=== PATIENT | female | born 1955 | race Asian ===

== ENCOUNTER 2020-02-28 15:37 | Emergency (ER) | payer OTHER ==
[~2020-02-28] VITALS: Ht 172.7 cm; Wt 61.7 kg
[2020-02-28] MEDS ORDERED: IV NS 0.9% 500 ML BAG IV ONE ×2 (16:00→16:30)
[2020-02-28] MEDS ORDERED: ONDANSETRON HCL/PF 4 MG/2 ML VIAL IVP ONE (16:00)
[2020-02-28] MEDS ORDERED: ONDANSETRON HCL/PF 4 MG/2 ML VIAL ONE (16:05)
--- NOTE | 2020-02-28 16:18 | NUR ---
BIBS FROM HOME TO ER BED 7. AAOX4. NOT IN RESP DISTRESS, BREATHING EVEN AND UNLABORED. AMBULATORY. CAME IN FOR BURPING FOR THE PAST 3 WEEKS. PT ALSO CAME IN FOR DIFFICULTY BREATHING UPON WAKING UP, NOT IN DISTRESS UPON ASSESSMENT. PT ALSO REPORTS THAT IT FEELS BURNING ON HER CHEST AND MOUTH. MD WAS AT BEDSIDE FOR EVAL.
[2020-02-28 16:20] LABS: BASOPHILS % (AUTO) 0.3 % (0.0-2.0); EOSINOPHILS % (AUTO) 0.5 % (0.0-6.0); HEMATOCRIT 35 % (33-45); HEMOGLOBIN 11.8 g/dL (11.5-14.8); LYMPHOCYTES # (AUTO) 1.4 /CMM (0.8-4.8); LYMPHOCYTES % (AUTO) 20.5 % (20.0-44.0); MEAN CORPUSCULAR HGB CONC 34 g/dl (31.0-36.0); MEAN CORPUSCULAR VOLUME 81 fL (82-100); MONOCYTES # (AUTO) 0.5 /CMM (0.1-1.30); MONOCYTES % (AUTO) 7.1 % (2.0-12.0); NEUTROPHILS # (AUTO) 4.8 /CMM (1.8-8.9); NEUTROPHILS % (AUTO) 71.6 % (43.0-81.0); PLATELET COUNT (AUTO) 315 /CMM (150-450); RED BLOOD CELL COUNT(AUTO) 4.35 MIL/uL (4.0-5.2); WHITE BLOOD COUNT (AUTO) 6.8 K/uL (4.3-11.0)
[2020-02-28 16:27] LABS: CALCIUM, SERUM 8.7 mg/dL (8.5-10.1); CREATININE 1.3 mg/dL (0.6-1.3)
[2020-02-28] MEDS ORDERED: PANTOPRAZOLE 40 MG VIAL IV ONE (16:30)
[2020-02-28] MEDS ORDERED: MAG HYDROX/AL HYDROX/SIMETH 30 ML UDC PO ONE (16:30)
[2020-02-28] MEDS ORDERED: LIDOCAINE VISCOUS 2% UD 15 ML UDC MM ONE (16:30)
[2020-02-28 16:33] LABS: BILIRUBIN,TOTAL 0.4 mg/dL (0.2-1.0)
[2020-02-28 16:34] LABS: ALBUMIN 3.7 g/dL (3.4-5.0); BILIRUBIN,DIRECT 0.1 mg/dL (0.0-0.2); TOTAL PROTEIN, SERUM 7.6 g/dL (6.4-8.2)
[2020-02-28] MEDS ORDERED: LIDOCAINE VISCOUS 2% UD 15 ML UDC ONE (16:38)
[2020-02-28] MEDS ORDERED: PANTOPRAZOLE 40 MG VIAL ONE (16:38)
[2020-02-28] MEDS ORDERED: MAG HYDROX/AL HYDROX/SIMETH 30 ML UDC ONE (16:39)
[2020-02-28 17:34] LABS: APPEARANCE,URINE Slightly Cloudy (CLEAR); BILIRUBIN,URINE Negative (NEGATIVE); BLOOD, URINE Negative Ery/uL (NEGATIVE); COLOR,URINE Yellow (YELLOW); KETONES,URINE 40 (NEGATIVE); LEUKOCYTE ESTERASE ,URINE Negative (NEGATIVE); NITRITE, URINE Negative (NEGATIVE); PH,URINE >9.0 (5.0-8.0); PROTEIN,URINE Negative (NEGATIVE); UGLUCOSE Negative (NEGATIVE); UROBILINOGEN,URINE 0.2 EU/dL (0.2)
[2020-02-28 17:40] LABS: BACTERIA,URINE None seen /HPF (None Seen); RBC,URINE 0-2 /HPF (0-2); SQUAMOUS EPITHELIAL CELL,UR Moderate /HPF (None Seen); WBC,URINE 0-2 /HPF (0-3)
--- NOTE | 2020-02-28 17:56 | NUR ---
US AT BEDSIDE.
--- NOTE | 2020-02-28 18:31 | NUR ---
Patient discharged to home in stable condition. Written and verbal after care instructions given. Patient verbalizes understanding of instruction.IV removed. Catheter intact and site benign. Pressure and 4x4 applied to site. No bleeding noted. Pt ambulatory with a steady gait
[2020-02-28 18:32] VITALS: BP 136/89
== END 2020-02-28 18:32 | disposition home or self-care (01) ==
LOC: ER 15:41
DX: K80.50 Calculus of bile duct without cholangitis or cholecystitis without obstruction (principal); K85.90 Acute pancreatitis without necrosis or infection, unspecified; I10 Essential (primary) hypertension; E11.9 Type 2 diabetes mellitus without complications; E78.00 Pure hypercholesterolemia, unspecified
CPT/HCPCS: 36415; 71045; 76705; 80048; 80076; 81001; 83690; 85025; 93005; 96374; 96375; 99285; C9113; J2405; J7040 ×2; 81000-TC

== ENCOUNTER 2020-03-08 10:56 | Inpatient (IN) | payer OTHER ==
[~2020-03-08] VITALS: Ht 167.6 cm; Wt 62.3 kg
--- NOTE | 2020-03-08 11:10 | NUR ---
Abdominal Pain/SOB "was here last week dx with pancreatitis/pain worse at night have problems breathing" Patient a/ox4, breathing even and unlabored, no sob noted, needs attended, kept comfortable. Attached to the director mortgage.
[2020-03-08] MEDS ORDERED: ONDANSETRON HCL/PF 4 MG/2 ML VIAL ONE (11:20)
--- NOTE | 2020-03-08 11:25 | NUR ---
PATIENT TAKEN TO CT.
[2020-03-08] MEDS ORDERED: ONDANSETRON HCL/PF 4 MG/2 ML VIAL IVP ONE (11:30)
[2020-03-08 11:33] LABS: BASOPHILS % (AUTO) 0.7 % (0.0-2.0); EOSINOPHILS % (AUTO) 0.3 % (0.0-6.0); HEMATOCRIT 36 % (33-45); HEMOGLOBIN 12.3 g/dL (11.5-14.8); LYMPHOCYTES # (AUTO) 0.8 /CMM (0.8-4.8); LYMPHOCYTES % (AUTO) 12.6 % (20.0-44.0); MEAN CORPUSCULAR HGB CONC 35 g/dl (31.0-36.0); MEAN CORPUSCULAR VOLUME 80 fL (82-100); MONOCYTES # (AUTO) 0.5 /CMM (0.1-1.30); MONOCYTES % (AUTO) 7.5 % (2.0-12.0); NEUTROPHILS # (AUTO) 5.1 /CMM (1.8-8.9); NEUTROPHILS % (AUTO) 78.9 % (43.0-81.0); PLATELET COUNT (AUTO) 355 /CMM (150-450); RED BLOOD CELL COUNT(AUTO) 4.48 MIL/uL (4.0-5.2); WHITE BLOOD COUNT (AUTO) 6.5 K/uL (4.3-11.0)
[2020-03-08 11:45] LABS: CALCIUM, SERUM 8.8 mg/dL (8.5-10.1); CARBON DIOXIDE 26 mmol/L (21-32); CHLORIDE 86 mmol/L (98-107); CREATININE 1.3 mg/dL (0.6-1.3); GLUCOSE 185 mg/dL (74-106); POTASSIUM 3.9 mmol/L (3.5-5.1); SODIUM SERUM 121 mmol/L (136-145); UREA NITROGEN, BLOOD 12 mg/dL (7-18)
[2020-03-08 11:48] LABS: ALANINE AMINOTRANSFERASE 17 U/L (12-78); ALBUMIN 3.9 g/dL (3.4-5.0); ALKALINE PHOSPHATASE 81 U/L (46-116); ASPARTATE AMINOTRANSFERASE 15 U/L (15-37); BILIRUBIN,DIRECT 0.1 mg/dL (0.0-0.2); BILIRUBIN,TOTAL 0.6 mg/dL (0.2-1.0); LIPASE 766 U/L (73-393); TOTAL PROTEIN, SERUM 7.9 g/dL (6.4-8.2)
--- NOTE | 2020-03-08 11:55 | NUR ---
PATIENT CAME BACK FROM CT.
[2020-03-08] MEDS ORDERED: DOCU-270 PO (11:57)
[2020-03-08] MEDS ORDERED: ASPI-1152 PO (11:57)
[2020-03-08] MEDS ORDERED: DOXE25CA3 PO (11:57)
[2020-03-08] MEDS ORDERED: METF-440 PO (11:57)
[2020-03-08] MEDS ORDERED: BENA20TA9 PO (11:57)
[2020-03-08] MEDS ORDERED: AMLO5TAB9 PO (11:57)
[2020-03-08] MEDS ORDERED: ONDA-97 PO (11:57)
[2020-03-08] MEDS ORDERED: LORA10TA7 PO (11:57)
[2020-03-08] MEDS ORDERED: FLUT16SP16 NS (11:57)
[2020-03-08] MEDS ORDERED: PANT40TA4 PO (11:57)
[2020-03-08] MEDS ORDERED: ZOLP10TA2 PO (11:57)
[2020-03-08] MEDS ORDERED: GLIM2TAB31 PO (11:57)
--- NOTE | 2020-03-08 12:10 | NUR ---
PATIENT GIVEN A URINE CUP FOR SAMPLE, BUT PATIENT DROP THE SPECIMEN ON THE TOILET. WILL TRY AGAIN LATER.
--- NOTE | 2020-03-08 12:21 | NUR ---
PATIENT RESTING AT THIS TIME, VSS.
--- NOTE | 2020-03-08 13:29 | NUR ---
CM CALLED SAYING THAT THEY GIVE AUTHORIZATION FOR M/S. AUTH NUMBER [id number].
--- NOTE | 2020-03-08 13:34 | NUR ---
PAGED DR. DUNCAN.
[2020-03-08 13:36] LABS: APPEARANCE,URINE Clear (CLEAR); BILIRUBIN,URINE Negative (NEGATIVE); BLOOD, URINE NEGATIVE Ery/uL (NEGATIVE); COLOR,URINE Yellow (YELLOW); KETONES,URINE Negative (NEGATIVE); LEUKOCYTE ESTERASE ,URINE Negative (NEGATIVE); NITRITE, URINE Negative (NEGATIVE); PROTEIN,URINE Negative (NEGATIVE); UGLUCOSE Negative (NEGATIVE); UROBILINOGEN,URINE 0.2 EU/dL (0.2)
[2020-03-08] MEDS ORDERED: IV NS 0.9% 100 ML IV ONE (14:00)
--- NOTE | 2020-03-08 14:23 | NUR ---
REPORT GIVEN TO LILIA FAY FOR ALISON.
--- NOTE | 2020-03-08 14:53 | NUR ---
PATIENT TRANSFERRED TO ROOM 310 IN STABLE CONDITION. NEEDS ATTENDED. KEPT COMFORTABLE.
[2020-03-08] MEDS ORDERED: Z GUARD REMEDY 2 OZ OINT TP PRN (15:00)
[2020-03-08] MEDS ORDERED: ZOLPIDEM TARTRATE 5 MG TABLET PO PRN (15:00)
[2020-03-08] MEDS ORDERED: HYDROCODONE/APAP 5/325MG 1 EACH TABLET PO PRN (15:00)
[2020-03-08] MEDS ORDERED: ONDANSETRON HCL/PF 4 MG/2 ML VIAL IVP PRN (15:00)
[2020-03-08] MEDS ORDERED: MAG HYDROX/AL HYDROX/SIMETH 30 ML UDC PO PRN (15:00)
[2020-03-08] MEDS ORDERED: ACETAMINOPHEN 325 MG TABLET PO PRN (15:00)
[2020-03-08] MEDS ORDERED: MAGNESIUM HYDROXIDE 30 ML UDC PO PRN (15:00)
--- NOTE | 2020-03-08 15:00 | NUR ---
MS/RN New admission New admission from emergency room with pancreatitis. Fully admitted, skin intact, heplock noted to right AC, no signs of infiltration seen. Educated on how to use television remote and how to call for nurse. Awaiting admitting orders and consult with Dr Mcelroy. Will continue to monitor and ensure safety.
[2020-03-08 15:21] VITALS: BP 145/78
[2020-03-08] MEDS ORDERED: DEXTROSE 50%-WATER 50 ML DISP.SYRIN IV PRN (15:30)
--- NOTE | 2020-03-08 15:33 | NUR ---
MS/RN S/B Dr Soliman Seen by Dr Soliman - admitting orders given. Home medications to be held at this time as patient is NPO.
[2020-03-08] MEDS: IV 1/2NS 1000 ML 1,000 ML IV PRN (15:42)
[2020-03-08] MEDS: BLOOD SUGAR DIAGNOSTIC 1 EACH STRIP IN SCH ×2 (17:11→21:23)
--- NOTE | 2020-03-08 17:51 | NUR ---
MS/RN Blood sugar Blood sugar at 5p - 116, no coverage needed.
--- NOTE | 2020-03-08 17:53 | NUR ---
MS/firer bisque kiln reconciliation Dr Soliman made aware that medication reconciliation still needs to be completed.
--- NOTE | 2020-03-08 18:54 | NUR ---
MS/RN End note No new needs or concerns at this time, all questions and concerns addressed. Will endorse to shift commander.
--- NOTE | 2020-03-08 19:30 | NUR ---
MS RN OPENING NOTES PATIENT AWAKE IN BED. A/OX4, ABLE TO VERBALIZE NEEDS. ON RA. NO S/S OF ACUTE RESPIRATORY DISTRESS OR C/O PAIN AT THIS TIME. CURRENTLY NPO. IV PRESENT ON RIGHT AC, SIZE 20, INTACT & PATENT WITH 1/2 NS RUNNING AT 125 ML/HR. SAFETY MEASURES IN PLACE AND PATIENT'S NEEDS MET. BED LOCKED, SIDE RAILS X2, CALL LIGHT WITHIN REACH. WILL CONTINUE TO MONITOR.
[2020-03-08 20:00] VITALS: BP 154/75
[2020-03-08 21:40] VITALS: BP 154/75
[2020-03-09] MEDS: IV 1/2NS 1000 ML 1,000 ML IV PRN ×2 (01:08→14:04)
[2020-03-09 06:16] LABS: BASOPHILS % (AUTO) 0.7 % (0.0-2.0); EOSINOPHILS % (AUTO) 0.5 % (0.0-6.0); HEMATOCRIT 36 % (33-45); HEMOGLOBIN 12.1 g/dL (11.5-14.8); LYMPHOCYTES % (AUTO) 16.3 % (20.0-44.0); MEAN CORPUSCULAR HGB CONC 34 g/dl (31.0-36.0); MEAN CORPUSCULAR VOLUME 81 fL (82-100); MONOCYTES # (AUTO) 0.5 /CMM (0.1-1.30); MONOCYTES % (AUTO) 8.8 % (2.0-12.0); NEUTROPHILS # (AUTO) 4.4 /CMM (1.8-8.9); NEUTROPHILS % (AUTO) 73.7 % (43.0-81.0); PLATELET COUNT (AUTO) 348 /CMM (150-450); RED BLOOD CELL COUNT(AUTO) 4.46 MIL/uL (4.0-5.2)
[2020-03-09 06:35] LABS: ALBUMIN 3.7 g/dL (3.4-5.0); BILIRUBIN,TOTAL 0.5 mg/dL (0.2-1.0); CALCIUM, SERUM 8.5 mg/dL (8.5-10.1); CREATININE 1.1 mg/dL (0.6-1.3); PHOSPHORUS 3.7 mg/dL (2.5-4.9); POTASSIUM 4.2 mmol/L (3.5-5.1); TOTAL PROTEIN, SERUM 7.7 g/dL (6.4-8.2)
[2020-03-09] MEDS: BLOOD SUGAR DIAGNOSTIC 1 EACH STRIP IN SCH ×4 (06:43→22:29)
--- NOTE | 2020-03-09 07:40 | NUR ---
MS RN CLOSING NOTES PATIENT AWAKE IN BED. A/OX4. ON RA. NO S/S OF ACUTE RESPIRATORY DISTRESS OR C/O PAIN AT THIS TIME. REMAINS NPO. IV PRESENT ON RIGHT AC, SIZE 20, INTACT & PATENT WITH 1/2 NS RUNNING AT 125 ML/HR. SAFETY MEASURES IN PLACE AND PATIENT'S NEEDS MET. BED LOCKED, SIDE RAILS X2, CALL LIGHT WITHIN REACH. WILL ENDORSE TO DAY SHIFT NURSE PLAN OF CARE.
--- NOTE | 2020-03-09 07:45 | NUR ---
MS/RN Orders Call received from Dr Mcelroy - patient to be scheduled for MRCP later today. Consent form signed and placed in chart, to remain NPO.
[2020-03-09 08:00] VITALS: BP 148/81
[2020-03-09 08:44] VITALS: BP 148/81
--- NOTE | 2020-03-09 11:42 | NUR ---
MS/RN MRCP Patient off floor at this time for MRCP.
--- NOTE | 2020-03-09 13:08 | NUR ---
MS/RN Blood sugar Blood sugar at noon 106, no coverage needed.
--- NOTE | 2020-03-09 15:42 | NUR ---
MS/RN Urine Urine spacejosias collected and sent to lab.
[2020-03-09 16:00] VITALS: BP 145/74
[2020-03-09 16:19] VITALS: BP 145/71
[2020-03-09 17:21] LABS: APPEARANCE,URINE SL CLOUDY (CLEAR); BILIRUBIN,URINE NEGATIVE (NEGATIVE); BLOOD, URINE TRACE-INTA Ery/uL (NEGATIVE); COLOR,URINE YELLOW (YELLOW); KETONES,URINE 40 (NEGATIVE); LEUKOCYTE ESTERASE ,URINE TRACE (NEGATIVE); NITRITE, URINE NEGATIVE (NEGATIVE); PROTEIN,URINE NEGATIVE (NEGATIVE); UGLUCOSE NEGATIVE (NEGATIVE); UROBILINOGEN,URINE 0.2 EU/dL (0.2)
[2020-03-09 17:42] LABS: BACTERIA,URINE Few /HPF (None Seen); RBC,URINE 0-2 /HPF (0-2); SQUAMOUS EPITHELIAL CELL,UR Few /HPF (None Seen)
[2020-03-09 17:43] LABS: EOSINOPHIL,URINE None Seen
[2020-03-09 17:51] LABS: CREATININE, URINE 52.6 MG/DL (30.0-125.0); URINE TOTAL PROTEIN 30.8 mg/dL (0-11.9)
--- NOTE | 2020-03-09 18:42 | NUR ---
MS/RN End note Patient remains in stable condition, no new needs at th is time. Continues to deny pain, remains NPO until reviewed by GI. Will endorse to fiberglass autobody repairer.
[2020-03-09 20:00] VITALS: BP 150/84
--- NOTE | 2020-03-09 20:00 | NUR ---
MS/RN OPENING NOTES RECEIVED PATIENT IN BED, ABLE TO RESPOND AND PARTICIPATE WITH CARE. CALM AND COOPERATIVE, ON NPO STATUS DUE TO DX AND PATIENT WITH IV FLUIDS OF 1/2NS AT 125 ML/HR. RESPIRATIONS EVEN AND UNLABORED, SKIN WARM TO TOUCH. ABLE TO MAKE NEEDS KNOWN WITH [employer] FAMILY MEMBER DAUGHTER WHO CALLS. TO FIND OUT HER CARE,AND TO HAVE MD BE INFORMED THAT WOULD LIKE TO CALL HER MALIK AM, TO FOLLOW UP IN AM. BED LOCKED CALL LIGHTS WITHIN REACH. WILL MONITOR.
--- NOTE | 2020-03-09 22:00 | NUR ---
BLOOD SUGAR CHECK AT 83 WITH NO COVERAGE. ON NPO STATUS WITH IV 1/2 NS AT 125 ML/HR.MONITORING FOR ANY CHANGES.
[2020-03-10] MEDS: IV 1/2NS 1000 ML 1,000 ML IV PRN ×2 (01:16→17:10)
[2020-03-10] MEDS: BLOOD SUGAR DIAGNOSTIC 1 EACH STRIP IN SCH ×5 (05:42→22:21)
--- NOTE | 2020-03-10 05:46 | NUR ---
BLOOD SUGAR 79 WITH NO COVERAGE .
[2020-03-10 06:27] LABS: BASOPHILS % (AUTO) 0.5 % (0.0-2.0); EOSINOPHILS % (AUTO) 0.8 % (0.0-6.0); HEMATOCRIT 37 % (33-45); HEMOGLOBIN 12.4 g/dL (11.5-14.8); LYMPHOCYTES % (AUTO) 14.5 % (20.0-44.0); MEAN CORPUSCULAR HGB CONC 33 g/dl (31.0-36.0); MEAN CORPUSCULAR VOLUME 82 fL (82-100); MONOCYTES # (AUTO) 0.5 /CMM (0.1-1.30); MONOCYTES % (AUTO) 7.3 % (2.0-12.0); NEUTROPHILS # (AUTO) 5.3 /CMM (1.8-8.9); NEUTROPHILS % (AUTO) 76.9 % (43.0-81.0); PLATELET COUNT (AUTO) 337 /CMM (150-450); RED BLOOD CELL COUNT(AUTO) 4.57 MIL/uL (4.0-5.2); WHITE BLOOD COUNT (AUTO) 6.9 K/uL (4.3-11.0)
--- NOTE | 2020-03-10 06:35 | NUR ---
310-2 MS/RN NOTES PATIENT ABLE TO SLEEP DURING THE NIGHT, ATTENDED TO ALL NEEDS, KEPT COMFORTABLE. IV HYDRATION OF IV NS AT 1/2 NS AT 125 ML/HR. BED LOCKED, CALL LIGHTS WITHIN REACH. MONITORED FOR ANY CHANGES. WILL ENDORSE TO AM RN FOR ALISON.
[2020-03-10 06:36] LABS: CALCIUM, SERUM 8.5 mg/dL (8.5-10.1); CREATININE 1.1 mg/dL (0.6-1.3); MAGNESIUM 1.8 mg/dL (1.8-2.4); PHOSPHORUS 3.3 mg/dL (2.5-4.9)
[2020-03-10 06:49] LABS: THYROID STIMULATING HORMONE 1.28 uIU/mL (0.358-3.74); URIC ACID 9.3 mg/dL (2.6-7.2)
--- NOTE | 2020-03-10 07:10 | NUR ---
MS/RN - Assessment Patient is A/O X 4, stable on room air, still c/o burning epigastric, currently NPO, on IVF 1/2 NS at 125 ml/hr infusing well on the RAC with no signs of infiltration. Dr. Lebron at bedside with order to start patient on clear liquids. Labs reviewed, no critical results seen. Fall precautions maintained. Will continue with current medical management.
--- NOTE | 2020-03-10 07:45 | NUR ---
MS/RN - Notes Dr. Lebron spoke with pt's daughter Makayla ([phone]) and updated on patient's condition.
[2020-03-10 08:00] VITALS: BP 141/81
[2020-03-10] MEDS: INSULIN REGULAR, HUMAN 100 UNIT/ML 3 ML VIAL SQ PRN ×2 (12:12→22:15)
[2020-03-10 16:00] VITALS: BP 119/71
--- NOTE | 2020-03-10 18:21 | NUR ---
MS/RN - End of shift summary Patient remain afebrile, states feeling better, able to tolerate clear liquid diet, denies abdominal pain, no c/o n/v. Continue IVF for volume resuscitation, good urine output noted. Plan of care discussed with patient and daughter Makayla and in agreement.
[2020-03-10 20:00] VITALS: BP 145/85
--- NOTE | 2020-03-10 20:00 | NUR ---
MS RN NOTES RECEIVED ON BED A/O X4,BREATHING REGULAR,NOT IN ANY FORM OF DISTRESS.IVF 1/2 NS AT 125ML/HR RATE IN PROGRESS ON RAC VIA IV PUMP,SITE PATENT.AMBULATE WITH ASSIST,CALL LIGHT IN REACH,NEEDS ANTICIPATED.
--- NOTE | 2020-03-10 22:50 | NUR ---
MS RN NOTES ACCU-CHECK BLOOD SUGAR CHECK 94,NO INSULIN COVERAGE.
[2020-03-11 03:06] LABS: PTH, INTACT 41 pg/mL (15-65)
[2020-03-11] MEDS: IV 1/2NS 1000 ML 1,000 ML IV PRN (03:49)
[2020-03-11] MEDS: BLOOD SUGAR DIAGNOSTIC 1 EACH STRIP IN SCH ×4 (05:18→22:19)
--- NOTE | 2020-03-11 05:30 | NUR ---
MS RN NOTES ACCU-CHECK BLOOD SUGAR CHECK 131,WANTS HUMULIN COVERAGE 2 UNITS BEFORE BREAKFAST.
--- NOTE | 2020-03-11 06:41 | NUR ---
MS RN NOTES FAIRLY RESTED AT NIGHT.IVF INFUSING WELL VIA IV PUMP.AMBULATE WITH ASSIST TO THE RESTROOM.DENIES PAIN.TOLERATED CLEAR LIQUID DIET.NO N/V NOTED.IN NO ACUTE DISTRESS.
[2020-03-11 07:03] LABS: BASOPHILS # (AUTO) 0.1 /CMM (0.0-0.2); BASOPHILS % (AUTO) 0.7 % (0.0-2.0); EOSINOPHILS % (AUTO) 0.9 % (0.0-6.0); HEMATOCRIT 38 % (33-45); HEMOGLOBIN 12.7 g/dL (11.5-14.8); LYMPHOCYTES # (AUTO) 1.4 /CMM (0.8-4.8); LYMPHOCYTES % (AUTO) 20.1 % (20.0-44.0); MEAN CORPUSCULAR HGB CONC 34 g/dl (31.0-36.0); MEAN CORPUSCULAR VOLUME 81 fL (82-100); MONOCYTES # (AUTO) 0.4 /CMM (0.1-1.30); MONOCYTES % (AUTO) 6.1 % (2.0-12.0); NEUTROPHILS # (AUTO) 5.1 /CMM (1.8-8.9); NEUTROPHILS % (AUTO) 72.2 % (43.0-81.0); PLATELET COUNT (AUTO) 387 /CMM (150-450); RED BLOOD CELL COUNT(AUTO) 4.65 MIL/uL (4.0-5.2); WHITE BLOOD COUNT (AUTO) 7.1 K/uL (4.3-11.0)
[2020-03-11 07:14] LABS: CALCIUM, SERUM 8.5 mg/dL (8.5-10.1); POTASSIUM 3.4 mmol/L (3.5-5.1)
--- NOTE | 2020-03-11 07:30 | NUR ---
MS/RN - Assessment Patient is A/O X 4, no complaints overnight, denies epigastric pain, stable on room air, on IVF 1/2 NS at 125 ml/hr infusing well on the RAC with no signs of infiltration. Dr. Lebron at bedside with order to advance diet to CCHO/2gm Na and d/c IVF. Labs reviewed, noted with low potassium/sodium. Relayed to Dr. Lebron. Fall precautions maintained. Will continue with current medical management. Addendum: 03/11/20 at 0750 by RAYMOND WHITLEY RN Correction to above order: D/c IVF if able to tolerate current diet.
[2020-03-11 08:00] VITALS: BP 130/70
[2020-03-11 08:07] LABS: *SPE ALBUMIN 3.4 g/dL (2.9-4.4); *SPE ALPHA-1-GLOBULIN 0.3 g/dL (0.0-0.4); *SPE BETA GLOBULIN 1.2 g/dL (0.7-1.3); *SPE GLOBULIN, TOTAL 3.5 g/dL (2.2-3.9); *SPE M-SPIKE Not Observed g/dL (Not Observed); *SPEGAMMA GLOBULIN 1.1 g/dL (0.4-1.8)
[2020-03-11] MEDS ORDERED: POTASSIUM CHLORIDE 20 MEQ TAB.PRT.SR PO SCH (12:00)
[2020-03-11 16:00] VITALS: BP 135/79
[2020-03-11] MEDS: METFORMIN 500 MG TABLET PO SCH (17:07)
[2020-03-11] MEDS: INSULIN REGULAR, HUMAN 100 UNIT/ML 3 ML VIAL SQ PRN (17:12)
--- NOTE | 2020-03-11 17:15 | NUR ---
MS/RN IV SITE CHANGE Removed Right AC IV since it was leaking. New IV site was done on the Left wrist, 22 gauge, saline locked.
--- NOTE | 2020-03-11 17:37 | NUR ---
MS/RN END OF SHIFT SUMMARY Patient is resting in bed, states that she is feeling better and able to tolerate CCHO & 2 gm Na diet. No c/o of n/v noted, vital signs stable, remains afebrile, and denies any pain. Fall precautions maintained. Doctor Andonian ordered discharge tomorrow if patient is continuing to tolerate advanced diet. Will endorse to ld teacher staff.
--- NOTE | 2020-03-11 19:35 | NUR ---
MS RN NOTES RECEIVED WALKING AROUND IN THE ROOM. WITH STEADY GAIT.SALINE LOCK LEFT WRIST INTACT AND PATENT.CLAIMED NO ABDOMINAL PAIN THIS TIME AND NO VOMITING.CALL LIGHT IN REACH,NEEDS ANTICIPATED.
[2020-03-11 20:00] VITALS: BP 145/80
--- NOTE | 2020-03-11 21:30 | NUR ---
MS RN NOTES ACCU-CHECK BLOOD SUGAR CHECK 121,NO INSULIN COVERAGE.ALERT,ORIENTED X3.
[2020-03-11] MEDS ORDERED: ZOLPIDEM TARTRATE 10 MG TABLET PO SCH (22:00)
--- NOTE | 2020-03-12 01:00 | NUR ---
MS RN NOTES SLEPT WELL AT NIGHT,DENIES ABDOMINAL PAIN,FEELS BETTER.CALL LIGHT IN REACH,NEEDS ATTENDED.
[2020-03-12] MEDS: BLOOD SUGAR DIAGNOSTIC 1 EACH STRIP IN SCH ×2 (06:29→11:52)
--- NOTE | 2020-03-12 06:30 | NUR ---
MS RN NOTES ACCU-CHECK BLOOD SUGAR CHECK 155,PATIENT REQUEST COVERAGE TO BE GIVEN BEFORE BREAKFAST,NOTED
[2020-03-12 07:22] LABS: BASOPHILS # (AUTO) 0.1 /CMM (0.0-0.2); BASOPHILS % (AUTO) 0.9 % (0.0-2.0); EOSINOPHILS % (AUTO) 2.5 % (0.0-6.0); HEMATOCRIT 36 % (33-45); HEMOGLOBIN 12.3 g/dL (11.5-14.8); LYMPHOCYTES # (AUTO) 1.5 /CMM (0.8-4.8); LYMPHOCYTES % (AUTO) 24.4 % (20.0-44.0); MEAN CORPUSCULAR HGB CONC 34 g/dl (31.0-36.0); MEAN CORPUSCULAR VOLUME 81 fL (82-100); MONOCYTES # (AUTO) 0.6 /CMM (0.1-1.30); MONOCYTES % (AUTO) 9.3 % (2.0-12.0); NEUTROPHILS # (AUTO) 3.9 /CMM (1.8-8.9); NEUTROPHILS % (AUTO) 62.9 % (43.0-81.0); PLATELET COUNT (AUTO) 350 /CMM (150-450); RED BLOOD CELL COUNT(AUTO) 4.46 MIL/uL (4.0-5.2); WHITE BLOOD COUNT (AUTO) 6.3 K/uL (4.3-11.0)
[2020-03-12] MEDS ORDERED: PANTOPRAZOLE 40 MG TABLET.DR PO SCH (07:30)
[2020-03-12] MEDS: INSULIN REGULAR, HUMAN 100 UNIT/ML 3 ML VIAL SQ PRN (07:34)
[2020-03-12 07:41] LABS: CALCIUM, SERUM 8.6 mg/dL (8.5-10.1); CREATININE 1.2 mg/dL (0.6-1.3); POTASSIUM 3.7 mmol/L (3.5-5.1)
[2020-03-12 08:00] VITALS: BP 129/77
--- NOTE | 2020-03-12 08:00 | NUR ---
MS/RN OPENING NOTES RECEIVED PATIENT LYING ON BED COMFORTABLY, PATIENT IS ALERT AND ORIENTED X4. PATIENT IN NO APPARENT RESPIRATORY DISTRESS NOTED. DENIES PAIN AT THIS TIME. PATIENT IN ROOM AIR SATURATION OF 99%. BED IN LOWEST POSITION SIDE RAILS UP X2. CALL LIGHT WITHIN REACH . WILL CONTINUE TO MONITOR.
[2020-03-12] MEDS ORDERED: AMLODIPINE BESYLATE 5 MG TABLET PO SCH (09:00)
[2020-03-12] MEDS: DOXEPIN HCL (25 MG) 25 MG CAPSULE PO SCH ×2 (09:00→09:05)
[2020-03-12] MEDS ORDERED: DOCUSATE SODIUM 100 MG CAPSULE PO SCH (09:00)
[2020-03-12] MEDS ORDERED: GLIMEPIRIDE 1 MG TABLET PO SCH (09:00)
[2020-03-12] MEDS ORDERED: FLUTICASONE PROPIONATE 16 GM BOTTLE NS PRN (09:00)
[2020-03-12] MEDS ORDERED: BENAZEPRIL HCL 20 MG TABLET PO SCH (09:00)
[2020-03-12] MEDS ORDERED: ASPIRIN EC 81 MG TABLET.DR PO SCH (09:00)
[2020-03-12] MEDS ORDERED: LORATADINE 10 MG TABLET PO SCH (09:00)
[2020-03-12] MEDS: METFORMIN 500 MG TABLET PO SCH (09:01)
[2020-03-12 09:02] VITALS: BP 129/77
--- NOTE | 2020-03-12 09:52 | NUR ---
MS/RN NOTES SODIUM 130 MD WAS AWARE, NO ORDER AT THIS TIME.
--- NOTE | 2020-03-12 11:54 | NUR ---
MS/RN NOTES BS 41MG/DL GIVE PATIENT MEAL FOR LUNCH AND ORANGE JUICE, MD IS AWARE AND CHARGE NURSE, WILL RECHECK BLOOD SUGAR AFTER 15MINUTES.
--- NOTE | 2020-03-12 12:03 | NUR ---
MS/RN NOTES D50 IV WAS ADMINISTERED PRESCRIBED MEDS. WILL MONITOR AND RECHECK AFTER 15 MINUTES.
--- NOTE | 2020-03-12 12:57 | NUR ---
MS/RN NOTES PATIENT IS ALERT AND ORIENTED X 4. PATIENT DENIES PAIN AT THIS TIME. PATIENT IN NO APPARENT RESPIRATORY DISTRESS NOTED. IN ROOM AIR SATURATION OF 99%. RESPIRATION REGULAR AND UNLABORED. SEEN AND EXAMINED BY MD WITH ORDERS MADE AND NOTED. ALL DUE MEDICATION WAS GIVEN. PATIENT DISCHARGED AT 1245. PATIENT EAT LUNCH BEFORE GOING HOME. PATIENT BLOOD SUGAR 221MG/DL MD AND CHARGED NURSE IS AWARE. PATIENT WAS GIVEN DISCHARGED INSTRUCTIONS AND PATIENT VERBALIZED UNDERSTANDING. THE PATIENT LEFT THE HOSPITAL IN STABLE CONDITION, ACCOMPANIED BY DAUGHTER IN A PRIVATE CAR.
== END 2020-03-12 12:59 | disposition home or self-care (01) ==
LOC: ER 11:00 → TELE 14:27 → MED 14:29
PROVIDERS: ADMIT Internal Medicine; ATTEND Family Medicine
DX: K80.20 Calculus of gallbladder without cholecystitis without obstruction (principal); K85.10 Biliary acute pancreatitis without necrosis or infection; N17.9 Acute kidney failure, unspecified; E87.1 Hypo-osmolality and hyponatremia; E11.9 Type 2 diabetes mellitus without complications; I10 Essential (primary) hypertension; E86.1 Hypovolemia; E78.5 Hyperlipidemia, unspecified; E78.00 Pure hypercholesterolemia, unspecified; Z79.82 Long term (current) use of aspirin; Z79.84 Long term (current) use of oral hypoglycemic drugs; Z79.899 Other long term (current) drug therapy; E86.9 Volume depletion, unspecified; K59.00 Constipation, unspecified
CPT/HCPCS: 36415; 71045-TC; 74181-TC; 80048-TC; 80053-TC; 80061-TC; 80076-TC; 81000-TC; 82550-TC; 82570-TC; 82962-TC; 83605-TC; 83690-TC; 83735-TC; 83935-TC; 83970; 84100-TC; 84155; 84155-TC; 84165; 84300-TC; 84443-TC; 84484-TC; 84550-TC; 85025-TC; 87040-TC; 87081-TC; 87086-TC; G0378; J1815; J2405; J3490; J7030

== ENCOUNTER 2020-03-13 14:32 | Emergency (ER) | payer OTHER ==
[~2020-03-13] VITALS: Ht 172.7 cm; Wt 61.7 kg
[~2020-03-13 14:32] MED LIST: AMLO5TAB9 PO; ASPI-1420 PO; BENA20TA9 PO; DOCU-270 PO; DOXE25CA3 PO; FLUT16SP16 NS; GLIM2TAB31 PO; LORA10TA7 PO; METF-440 PO; ONDA-97 PO; PANT40TA49 PO; ZOLP10TA2 PO
--- NOTE | 2020-03-13 14:50 | NUR ---
BIB DAUGHTER C/O LLQ PAIN 1HR LICENSED FUNERAL DIRECTOR AND EMBALMER, ALSO C/O BURPING x 4WEEKS, TO ER BED 9, HOOKED TO MONITOR, CHANGED TO HOSP GOWN, WARM BLANKET PROVIDED, PATIENT AAO X 4, BREATHING EVEN AND UNLABORED. AWAITING MD MACIAS.
--- NOTE | 2020-03-13 15:01 | NUR ---
URINE SAMPLE COLLECTED AND SENT TO LAB
--- NOTE | 2020-03-13 15:05 | NUR ---
DR CLARK AT BEDSIDE
[2020-03-13 15:51] LABS: BASOPHILS # (AUTO) 0.1 /CMM (0.0-0.2); BASOPHILS % (AUTO) 0.7 % (0.0-2.0); EOSINOPHILS % (AUTO) 1.8 % (0.0-6.0); HEMATOCRIT 34 % (33-45); HEMOGLOBIN 11.6 g/dL (11.5-14.8); LYMPHOCYTES # (AUTO) 2.1 /CMM (0.8-4.8); LYMPHOCYTES % (AUTO) 25.4 % (20.0-44.0); MEAN CORPUSCULAR HGB CONC 34 g/dl (31.0-36.0); MEAN CORPUSCULAR VOLUME 81 fL (82-100); MONOCYTES # (AUTO) 0.7 /CMM (0.1-1.30); MONOCYTES % (AUTO) 8.7 % (2.0-12.0); NEUTROPHILS # (AUTO) 5.2 /CMM (1.8-8.9); NEUTROPHILS % (AUTO) 63.4 % (43.0-81.0); PLATELET COUNT (AUTO) 337 /CMM (150-450); RED BLOOD CELL COUNT(AUTO) 4.21 MIL/uL (4.0-5.2); WHITE BLOOD COUNT (AUTO) 8.2 K/uL (4.3-11.0)
[2020-03-13 15:52] LABS: APPEARANCE,URINE Clear (CLEAR); BILIRUBIN,URINE Negative (NEGATIVE); BLOOD, URINE Negative Ery/uL (NEGATIVE); COLOR,URINE Yellow (YELLOW); KETONES,URINE Negative (NEGATIVE); LEUKOCYTE ESTERASE ,URINE Small (NEGATIVE); NITRITE, URINE Negative (NEGATIVE); PROTEIN,URINE Negative (NEGATIVE); UGLUCOSE Negative (NEGATIVE); UROBILINOGEN,URINE 0.2 EU/dL (0.2)
--- NOTE | 2020-03-13 16:06 | NUR ---
WHEELED OUT VIA [facility] FOR CT SCAN.
[2020-03-13 16:13] LABS: BACTERIA,URINE None seen /HPF (None Seen); RBC,URINE 0-2 /HPF (0-2); SQUAMOUS EPITHELIAL CELL,UR Few /HPF (None Seen)
[2020-03-13 16:18] LABS: ALBUMIN 3.6 g/dL (3.4-5.0); BILIRUBIN,DIRECT 0.1 mg/dL (0.0-0.2); BILIRUBIN,TOTAL 0.6 mg/dL (0.2-1.0); CALCIUM, SERUM 8.5 mg/dL (8.5-10.1); CREATININE 1.3 mg/dL (0.6-1.3); POTASSIUM 3.9 mmol/L (3.5-5.1); TOTAL PROTEIN, SERUM 7.3 g/dL (6.4-8.2)
[2020-03-13] MEDS ORDERED: ONDANSETRON 4 MG TAB.RAPDIS ONE (17:52)
[2020-03-13] MEDS ORDERED: HYDROCODONE/APAP 5/325MG TABLET ONE (17:52)
[2020-03-13] MEDS ORDERED: HYDROCODONE/APAP 5/325MG TABLET PO ONE (18:00)
[2020-03-13] MEDS ORDERED: ONDANSETRON 4 MG TAB.RAPDIS SL ONE (18:00)
--- NOTE | 2020-03-13 18:03 | NUR ---
Patient discharged to home with daughter in stable condition. Written and verbal after care instructions given. Patient and daughter verbalizes understanding of instruction.
[2020-03-13 18:05] VITALS: BP 142/88
== END 2020-03-13 18:07 | disposition home or self-care (01) ==
LOC: ER 14:35
DX: K80.50 Calculus of bile duct without cholangitis or cholecystitis without obstruction (principal); K85.90 Acute pancreatitis without necrosis or infection, unspecified; I10 Essential (primary) hypertension; E78.5 Hyperlipidemia, unspecified; E11.9 Type 2 diabetes mellitus without complications; K21.9 Gastro-esophageal reflux disease without esophagitis; E78.00 Pure hypercholesterolemia, unspecified; Z79.82 Long term (current) use of aspirin; Z79.899 Other long term (current) drug therapy
CPT/HCPCS: 36415; 74176; 80048; 80076; 81001; 83690; 85025; 99284; Q0162; 81000-TC